=== PATIENT | male | born 1980 | race Caucasian/White ===

== ENCOUNTER 2016-09-29 16:47 | Emergency (ER) | payer OTHER ==
[~2016-09-29] VITALS: Ht 180.3 cm; Wt 92.8 kg
[2016-09-29] MEDS ORDERED: SODIUM CHLORIDE 0.9% 1,000ML IVBOLUS ONE (17:30)
[2016-09-29] MEDS ORDERED: OMNIPAQUE 350 MG/ML, 100ML BOTTLE ONE (17:30)
[2016-09-29] MEDS ORDERED: MORPHINE SULFATE 4 MG/ML, 1ML IVPush PRN (17:30)
[2016-09-29] MEDS ORDERED: ONDANSETRON 2MG/ML, 2ML IVPush ONE (17:30)
[2016-09-29 18:01] LABS: BLOOD UREA NITROGEN 19 mg/dL (7-18)
[2016-09-29 18:05] LABS: ASPARTATE AMINO TRANSFERASE 35 U/L (15-37)
[2016-09-29] MEDS ORDERED: ONDANSETRON 2MG/ML, 2ML ONE (19:20)
[2016-09-29] MEDS ORDERED: MORPHINE SULFATE 4 MG/ML, 1ML ONE (19:20)
[2016-09-29] MEDS ORDERED: AZITHROMYCIN 250 MG TABLET ONE (21:46)
[2016-09-29] MEDS ORDERED: AZITHROMYCIN 500 MG TABLET ONE (21:47)
[2016-09-29 21:53] VITALS: BP 106/50
[2016-09-29] MEDS ORDERED: DIPHENHYDRAMINE 12.5MG/5ML, 10ML UDC ONE (21:55)
[2016-09-29] MEDS ORDERED: AZITHROMYCIN 500 MG TABLET PO ONE (22:00)
== END 2016-09-29 22:20 | disposition home or self-care (01) ==
LOC: ED 22:00
DX: N45.1 Epididymitis (principal); K62.5 Hemorrhage of anus and rectum; R10.84 Generalized abdominal pain
CPT/HCPCS: 36415; 74177; 76870; 80053; 81001; 85025; 87086; 87491; 87591; 96361; 96374; 96375; 99285; J2405; J7030; Q9967